=== PATIENT | female | born 1965 | race Caucasian/White ===

== ENCOUNTER 2017-08-09 15:16 | Emergency (ER) | payer MEDICAID ==
[~2017-08-09] VITALS: Ht 162.6 cm; Wt 87.7 kg
[2017-08-09] MEDS ORDERED: INSLAN SQ (15:30)
[2017-08-09] MEDS ORDERED: BLOOD PRESSURE PO (15:30)
[2017-08-09] MEDS ORDERED: INSU100V SQ (15:30)
[2017-08-09 15:32] LABS: GLUCOSE,POINT OF CARE 273 MG/DL (70-110)
[2017-08-09] MEDS ORDERED: METHOCARBAMOL 500 MG TABLET PO ONE (17:00)
[2017-08-09] MEDS ORDERED: IBUPROFEN 600 MG TABLET PO ONE (17:00)
[2017-08-09 18:49] LABS: APPEARANCE,URINE CLEAR (CLEAR); BILIRUBIN,URINE NEGATIVE (NEGATIVE); GLUCOSE, URINE (UA) >=1000 mg/dL (NEGATIVE); KETONES,URINE NEGATIVE (NEGATIVE); LEUKOCYTE ESTERASE ,URINE NEGATIVE (NEGATIVE); NITRATE,URINE NEGATIVE (NEGATIVE); OCCULT BLOOD,URINE NEGATIVE (NEGATIVE); PH,URINE 5.5 (5.0-8.0); PROTEIN,URINE NEGATIVE (NEGATIVE); UROBILINOGEN,URINE 0.2 mg/dL (<=1.0)
[2017-08-09 18:55] LABS: BACTERIA,URINE None Seen /HPF (None Seen); RBC,URINE 0-2 /HPF (0-2); SQUAMOUS EPITHELIAL CELL,UR Few /LPF (None Seen); WBC,URINE 0-2 /HPF (0-5)
[2017-08-09 19:00] VITALS: BP 139/84
== END 2017-08-09 19:15 | disposition home or self-care (01) ==
LOC: EMS 15:18
DX: S13.4XXA Sprain of ligaments of cervical spine, initial encounter (principal); I10 Essential (primary) hypertension; R07.81 Pleurodynia; M79.674 Pain in right toe(s); E11.9 Type 2 diabetes mellitus without complications; Z79.4 Long term (current) use of insulin; V43.52XA Car driver injured in collision with other type car in traffic accident, initial encounter; Y93.89 Activity, other specified; Y92.488 Other paved roadways as the place of occurrence of the external cause; Y99.8 Other external cause status
CPT/HCPCS: 72040; 72100; 82962; 99285